=== PATIENT | female | born 1985 | race Caucasian/White ===

== ENCOUNTER 2020-11-15 15:12 | Outpatient (RCR) | payer OTHER, SELFPAY ==
[2020-11-15] MEDS: RHO(D) IMMUNE GLOBULIN 300 MCG/2 ML SYRINGE IM (20:42)
== END 2020-11-23 10:19 | disposition home or self-care (01) ==
LOC: ANHLAB 15:12
PROVIDERS: PCP Physician Assistant; Visit Provider Obstetrics & Gynecology
DX: Z29.13 Encounter for prophylactic Rho(D) immune globulin (principal); O36.0190 Maternal care for anti-D [Rh] antibodies, unspecified trimester, not applicable or unspecified; Z3A.00 Weeks of gestation of pregnancy not specified
CPT/HCPCS: 36415; 85461; 90384; 96372; J2790

== ENCOUNTER 2020-11-15 19:52 | Outpatient (RCR) | payer OTHER, SELFPAY | END 2020-11-23 10:20 | disposition home or self-care (01) | LOC: ANHOBOP 19:52 | PROVIDERS: PCP Physician Assistant; Visit Provider Obstetrics & Gynecology | DX: Z29.13 Encounter for prophylactic Rho(D) immune globulin (principal) | CPT/HCPCS: 99199 ==

== ENCOUNTER 2020-12-20 05:00 | Inpatient (IN) | payer OTHER, SELFPAY ==
[2020-12-20] VITALS (68 sets, daily range): BP systolic 102–136; BP diastolic 58–99; PULSE 68–107; RESP 16; TEMP 36.1–36.7; O2SAT 90–100; BMI 39.4
--- NOTE | 2020-12-20 05:36 | LDADM ---
This patient, Estefania Belle, was admitted to Labor/Delivery/Recovery 107 on 12/20/20 at 05:00. Plans for labor, pain management and were discussed with patient. Patient/family oriented to hospital policies and general routines including ID bracelet, bed and alarms, visiting hours, pain management, procedures, bathroom and other care routines, personal items, smoking policy, room service/diet and guest tray routines, infant security routines, and visiting hours. Patient/Family are encouraged to report perceived risks to care and to ask questions if they do not understand what they are told or what they should do. See OBIX for further documentation.
[2020-12-20 05:44] LABS: Basophils Percent Auto 0.2 % (0.2-1.2); Eosinophils Percent Auto 0.5 % (0-4.4); Hematocrit 31.6 % (37.0-47.0); Hemoglobin 9.9 g/dL (12.0-15.0); Immature Granulocyte Absolute 0.09 K/mm3 (0.00-0.031); Lymphocytes Absolute Auto 1.77 K/mm3 (0.9-3.2); Lymphocytes Percent Auto 20.6 % (18.3-44.2); Mean Corpuscular HGB Conc 31.3 g/dl (32-36); Mean Corpuscular Hemoglobin 24.8 pg (26-34); Mean Platelet Volume 12.4 fl (7.4-10.4); Monocytes Absolute Auto 0.4 K/mm3 (0.1-0.6); Monocytes Percent Auto 4.3 % (2.6-8.5); Neutrophils Absolute Auto 6.3 K/mm3 (1.3-6.7); Neutrophils Percent Auto 73.4 % (45.5-73.1); Platelet Count Result 163 k/mm3 (150-375); Red Cell Distribution Width 14.4 % (11.5-14.5); White Blood Count 8.6 K/mm3 (4.5-10.0)
[2020-12-20] MEDS: LACTATED RINGERS 1,000 ML 125 ML IV CONT ×2 (05:46→09:31)
[2020-12-20] MEDS: OXYTOCIN 30 UNITS/NS 500 ML 30 UNITS/500 ML BAG IV CONT (05:47)
[2020-12-20 06:35] LABS: HIV 1/2 Ab P24 Ag Result Negative (Negative)
[2020-12-20 07:19] LABS: Rapid Plasma Reagin Non-Reactive (NonReactive)
--- NOTE | 2020-12-20 07:58 | WPDANESEPP ---
Anes - Eval Pre Procedure Procedure: Labor epidural Date/Time: 12/20/20 07:58 Surgeon: Eula Preop Diagnosis: Abd pain with contractions Pre Op Diagnosis: Induction of Labor Patient Data Age: 35 Gender: F Height: 5 ft 8 in Weight: 117.5 kg Last Vital Signs Temp 97 F L 12/20/20 05:45 Pulse 85 12/20/20 07:31 BP 115/71 12/20/20 07:31 Allergies Allergy/AdvReac Type Severity Reaction Status Date / Time No Known Allergies Allergy Mild Unverified 03/19/11 13:01 Home Medications Medication Instructions Recorded Confirmed Type no.144-folic acid 1 tablet PO DAILY 12/20/20 12/20/20 History [] Laboratory Tests 12/20/20 12/20/20 12/20/20 05:25 05:25 05:25 WBC 8.6 K/mm3 K/mm3 (4.5-10.0) RBC 4.00 M/mm3 L M/mm3 (4.2-5.4) Hgb 9.9 g/dL L g/dL (12.0-15.0) Hct 31.6 % L % (37.0-47.0) MCV 79.0 fl L fl (80-100) MCH 24.8 pg L pg (26-34) MCHC 31.3 g/dl L g/dl (32-36) RDW 14.4 % % (11.5-14.5) Plt Count 163 k/mm3 k/mm3 (150-375) MPV 12.4 fl H fl (7.4-10.4) Immature Gran % (Auto) 1.0 % H % (0-0.5) Neut % (Auto) 73.4 % H % (45.5-73.1) Lymph % (Auto) 20.6 % % (18.3-44.2) [place] % (Auto) 4.3 % % (2.6-8.5) Eos % (Auto) 0.5 % % (0-4.4) Baso % (Auto) 0.2 % % (0.2-1.2) Lymph # (Auto) 1.77 K/mm3 K/mm3 (0.9-3.2) [place] # (Auto) 0.4 K/mm3 K/mm3 (0.1-0.6) Eos # (Auto) 0.0 K/mm3 K/mm3 (0-0.3) Baso # (Auto) 0.0 K/mm3 K/mm3 (0.0-0.1) Abs Immat Gran (auto) 0.09 K/mm3 H K/mm3 (0.00-0.031) Absolute Neuts (auto) 6.3 K/mm3 K/mm3 (1.3-6.7) Absolute Nucleated RBC 0.0 K/mm3 K/mm3 (0.0-0.012) Nucleated RBC % 0.0 % % (0.0-0.2) RPR Non-reactive (NonReactive) HIV 1&2 Ab/P24 Ag 4thGn Negative (Negative) Patient hx anesthesia problems: none Family hx anesthesia problems: none PMFSH Past Medical History Medical History Morbid obesity and not yet delivered Family History Family History Mother Family history of rheumatoid arthritis Social History Social History Smoking status: Never smoker Alcohol intake: current Substance use: never Gender identity (if verbalized by the patient): Female Sexual Orientation (if Verbalized by the Patient): Straight or Heterosexual Spiritual care concerns: No Exam Day of Procedure 12/20/20 07:58 Patient weight: morbidly obese Airway: Mallampati scale class II Neurological: alert and oriented
--- NOTE | 2020-12-20 13:09 | PM.OBPRVD ---
OB - Delivery Note Procedure Delivery date: 12/20/20 Procedure: Induction of labor with Induction method: AROM and per pitocin protocol Delivery monitor: external FHT and external uterine Route of delivery: Laceration Description: Perineal - 1st Degree Delivery repair: vicryl (3-0) Specimen: Yes (cord blood) Quantitative Blood Loss (ml): 370 Anesthesia type: Epidural Disposition: PACU Complications: None Narrative: 35 y/o at 39 weeks gestation who presented to the hospital for induction of labor. Oxytocin was administered intravenously. Amniotomy was performed with return of clear fluid. She received an epidural for pain control. Her labor progressed and her cervix dilated completely. She pushed with good effort and delivered the infant's head to the perineum. A shoulder dystocia was encountered. Fundal pressure and traction on the head were strictly avoided. McRobert's maneuver was employed. The posterior arm was able to be grasped and delivered, then the anterior (right) shoulder was able to be rotated clockwise and delivered easily. The loose nuchal cord was splinted and the body delivered. The nuchal cord was reduced. The nose and mouth were bulb suctioned. After a delay, the cord was clamped and cut. The infant was handed off the field. Cord blood was collected. The placenta delivered spontaneously and was grossly normal in appearance. The usual 3 vessel cord was noted. A first degree midline perineal laceration was sustained. This was reapproximated using 3 0 Vicryl in interrupted figure of eight fashion. Excellent hemostasis resulted as did excellent reapproximation of the normal anatomy. Needle and instrument counts were correct. The patient was taken to recovery room in stable condition. The infant went to the nursery in stable condition. I was present and scrubbed for the entire delivery. Baby Date of : 12/20/20 Time of : 12:44 Weeks of gestation at delivery: 39 Infant gender: Female Weight (pounds): 9 Weight (ounces): 15 presentation: vertex position: Left Occiput Anterior Placenta delivery description: Spontaneous and Normal Configuration cord vessel description: 3 Vessels, Nuchal Cord and Delayed Cord Clamping score one minute: 8 score five minutes: 9
[2020-12-20] MEDS: OXYTOCIN 30 UNITS/NS 500 ML 30 UNITS/500 ML BAG 125 UNITS IV CONT (13:19)
[2020-12-20] MEDS: WITCH HAZEL 40 PADS 1 PAD TOPICAL (15:34)
[2020-12-20] MEDS: BENZOCAINE 20% AER SPR (*SP) 56 GM CAN 1 SPRAY TOPICAL (15:34)
[2020-12-20] MEDS: LORATADINE 10 MG TABLET (15:35)
[2020-12-20] MEDS: IBUPROFEN 600 MG TABLET PO ×2 (15:35→23:12)
--- NOTE | 2020-12-20 18:38 | PM.OBDSVD ---
DS: Admitting Diagnosis Admitting Diagnosis Admitting Diagnosis: IUP at 39 weeks DS: Discharge Diagnosis Discharge Diagnosis (1) (normal spontaneous vaginal delivery): Code(s): O80 - Encounter for full-term uncomplicated delivery Status: Acute OB - DS: Summary OB Procedures : None OB Procedures Intrapartum: Spontaneous Vag Delivery OB Procedures: : None DS: Data Data Completed and Pending Labs on day of discharge: Labs from last 24 hours 12/20/20 12/20/20 12/20/20 05:25 05:25 05:25 WBC RBC Hgb Hct MCV MCH MCHC RDW Plt Count MPV Immature Gran % (Auto) Neut % (Auto) Lymph % (Auto) [place] % (Auto) Eos % (Auto) Baso % (Auto) Lymph # (Auto) [place] # (Auto) Eos # (Auto) Baso # (Auto) Abs Immat Gran (auto) Absolute Neuts (auto) Absolute Nucleated RBC Nucleated RBC % RPR Non-reactive HIV 1&2 Ab/P24 Ag 4thGn Negative Blood Type A Negative Antibody Screen Positive Antibody Identification Passive Due to RH Imm Glob Antigen Identification Cancelled SANCHEZ, IgG Interpret Not Performed SANCHEZ, Poly Interpret Negative SANCHEZ, Complement Interp Not Performed 12/20/20 05:25 WBC 8.6 RBC 4.00 L Hgb 9.9 L Hct 31.6 L MCV 79.0 L MCH 24.8 L MCHC 31.3 L RDW 14.4 Plt Count 163 MPV 12.4 H Immature Gran % (Auto) 1.0 H Neut % (Auto) 73.4 H Lymph % (Auto) 20.6 [place] % (Auto) 4.3 Eos % (Auto) 0.5 Baso % (Auto) 0.2 Lymph # (Auto) 1.77 [place] # (Auto) 0.4 Eos # (Auto) 0.0 Baso # (Auto) 0.0 Abs Immat Gran (auto) 0.09 H Absolute Neuts (auto) 6.3 Absolute Nucleated RBC 0.0 Nucleated RBC % 0.0 RPR HIV 1&2 Ab/P24 Ag 4thGn Blood Type Antibody Screen Antibody Identification Antigen Identification SANCHEZ, IgG Interpret SANCHEZ, Poly Interpret SANCHEZ, Complement Interp Discharge Plan Discharge Attending physician on discharge: Yoseph Forde Discharging Clinician: Yoseph Forde Patient Disposition: Home, Self-Care Activity: pelvic rest Diet: regular Discharge Instructions: Education: Mom and Baby Guide Given to: Mother Follow-Up: Call your delivering provider's office for an appointment to be seen in: 6 Weeks Mom and baby should come to the [facility] for the follow-up appointment. Appointment Date/Time: December 24, 2020 at 10:00 am What to expect at your follow-up visit: Blood Pressure Check Physical Assessment Call [phone] if you are unable to keep your appointment time. BREAST CARE: * Wear a snug supportive bra. * For engorgement discomfort: Bottle Feeding: * May apply ice packs EPISIOTOMY/PERINEAL CARE: * Until bleeding stops, use your miguel bottle after urinating * Change your pad frequently throughout the day * You may take sitz baths several times a day (fill your bathtub with warm water and soak for 20 minutes.) Do NOT bathe in the water * No tub baths until seen by your physician - You may shower ACTIVITY: * Rest as much as possible. * Do not exercise or lift anything heavier than your baby (such as laundry or other children.) * Avoid stairs or driving as much as possible. * Do not put anything into the vagina. No douching, tampons, or sexual activity until seen by physician. NOTIFY PHYSICIAN IF YOU HAVE ANY QUESTIONS OR IF ANY OF THE FOLLOWING SYMPTOMS OCCUR: * If your vaginal area becomes red, swollen, or more painful than what you have experienced in the hospital. * If your vaginal bleeding becomes foul smelling. * If your vaginal bleeding becomes more heavy than a period or if your bleeding changes from pink to bright red. However, you may pass an occasional walnut-sized clot once or twice for the first week . * If you experience a sharp, shooting pain in your calves. * If you discover a hard, reddened area on your breast or if you experience flu-like symptoms.
[2020-12-21 05:00] VITALS: BP 108/63; PULSE 97; RESP 16; TEMP 36; O2SAT 100
[2020-12-21] MEDS: IBUPROFEN 600 MG TABLET PO ×4 (05:04→23:45)
[2020-12-21 05:38] LABS: Hematocrit 29.3 % (37.0-47.0); Hemoglobin 9.1 g/dL (12.0-15.0)
--- NOTE | 2020-12-21 07:00 | PC.NURSE ---
PT introductions made and plan of care discussed per post , pain management, bottle feeding, daily care activities. PT receives instructions and education through out the shift via one to one discussion, demonstration, and mom baby care guide. PT and spouse are recipients of such care and neither show signs of any learning barriers. PT verbalized understanding of such care.
--- NOTE | 2020-12-21 07:06 | PM.OBPNVD ---
OB - PN: Subj Subjective Date/time seen: 12/21/20 07:06 Patient comments: no complaints, pain well controlled and tolerating diet [place] feeding status: exclusively breast feeding Narrative: patient doing well this AM. No complaints. Pain is well controlled. She reports minimal bleeding. She is ambulating and voiding without difficulty. She is tolerating PO. She denies N/V, fever, chills. OB - PN: Obj Data Labs CBC & Chem 7: 12/21/20 05:04 Labs: Laboratory Results - last 24 hr 12/20/20 12/20/20 12/21/20 05:25 05:25 05:04 Hgb 9.1 L Hct 29.3 L RPR Non-reactive Blood Type A Negative Antibody Screen Positive Antibody Identification Passive Due to RH Imm Glob Antigen Identification Cancelled SANCHEZ, IgG Interpret Not Performed SANCHEZ, Poly Interpret Negative SANCHEZ, Complement Interp Not Performed OB - PN A/P Plan day: 1 Plan: routine care Comments: patient doing well H/H 9.08/10 continue routine care anticipate d/c home tomorrow Time Spent With Patient Time: Total time spent is greater than 50% in coordination of care (as documented) at patient's floor/unit and/or counseling patient: Time with patient: less than 15 minutes Review of Systems Review of Systems: All systems reviewed & are unremarkable except as noted in HPI and below Exam Const: General: comfortable and no acute distress Resp: Effort & Inspection: normal respiratory effort Cardio: Rate: regular rate GI: GI Palp: Yes Soft to palpation and No Tenderness to palpation present (GI) Auscultation: normal bowel sounds Other: fundus firm and below umbilicus. Psych: Affect: normal affect
[2020-12-21 07:30] VITALS: BP 120/70; PULSE 86; RESP 16; TEMP 36.7; O2SAT 99
--- NOTE | 2020-12-21 08:26 | WPDANLDPN2 ---
Anes-Prog Note L&D Date/Time: 12/21/20 08:26 Comfortable throughout: labor Neuraxial method: epidural Epidural/Spinal procedure site: clean & non-tender Neuro status: Neuro function grossly intact. Cardiovascular status: normal Respiratory status: normal Airway patency: baseline Mental status: baseline Post-Op hydration status: normal Vital Signs: Last Vital Signs Temp 36.0 C L 12/21/20 05:00 Pulse 97 12/21/20 05:00 Resp 16 12/21/20 05:00 BP 108/63 12/21/20 05:00 Pulse Ox 100 12/21/20 05:00 Pain score (VAS): none Patient feedback: Patient satisfied with anesthetic care.
[2020-12-21 09:49] VITALS: PULSE 86; RESP 16; O2SAT 99
[2020-12-21] MEDS: DOCUSATE SODIUM 100 MG CAPSULE PO ×2 (09:49→18:06)
[2020-12-21] MEDS: DIBUCAINE 1% OINTMENT 30 GM TUBE 1 APPLIC TOPICAL (09:49)
[2020-12-21] MEDS: POLYSACCHARIDE IRON COMPLEX 150 MG CAPSULE PO ×2 (09:49→18:07)
[2020-12-21] MEDS: ACETAMINOPHEN 325 MG TABLET 650 MG PO ×3 (09:50→23:45)
[2020-12-21 12:02] VITALS: BP 130/67; PULSE 94; RESP 16; TEMP 37.7; O2SAT 99
[2020-12-21] MEDS: WITCH HAZEL 40 PADS 1 PAD TOPICAL (18:04)
[2020-12-21 21:15] VITALS: BP 121/63; PULSE 85; RESP 16; TEMP 36.8; O2SAT 99
[2020-12-22 10:39] VITALS: BP 128/74; PULSE 82; RESP 20; TEMP 36.9; O2SAT 100
[2020-12-24 10:27] VITALS: BP 131/77; PULSE 87; RESP 20; TEMP 36.8; O2SAT 100
== END 2020-12-22 11:40 | disposition home or self-care (01) | DRG 807 ==
LOC: ANHOB2 12-22 10:49 → ANHLDR 12-24 12:26 → ANHOB2 12-24 12:26
PROVIDERS: Admitting Provider Obstetrics & Gynecology; PCP Physician Assistant; Visit Provider Student in an Organized Health Care Education/Training Program
DX: O77.0 Labor and delivery complicated by meconium in amniotic fluid (principal); Z37.0 Single live birth; Z3A.39 39 weeks gestation of pregnancy; O70.0 First degree perineal laceration during delivery; O99.214 Obesity complicating childbirth; E66.01 Morbid (severe) obesity due to excess calories; O66.0 Obstructed labor due to shoulder dystocia; O99.62 Diseases of the digestive system complicating childbirth; K21.9 Gastro-esophageal reflux disease without esophagitis
CPT/HCPCS: 36415; 85014; 85018; 85025; 86592; 86703; 86850; 86880; 86900; 86901; 86902; A9270; G0432; J2590; J2795; J7120